=== PATIENT | male | born 1965 | race Caucasian/White ===

== ENCOUNTER 2023-12-27 13:52 | Emergency (ER) | payer BC ==
[~2023-12-27] VITALS: Ht 182.9 cm; Wt 109.1 kg
[2023-12-27 14:23] VITALS: BP 168/109; PULSE 108; RESP 18; O2SAT 98
[2023-12-27 14:37] LABS: Urine Bacteria NONE SEEN /hpf (None Seen); Urine Blood 2+ /uL (Negative); Urine Clarity Clear (Clear); Urine Protein, UAD TRACE (Negative); Urine Specific Gravity 1.008 (1.001-1.035); Urine Urobilinogen Normal (Negative); Urine WBC 1 /hpf (0 - 3)
[2023-12-27 14:38] LABS: Urine Color Yellow (Yellow)
== END 2023-12-27 16:13 | disposition left against medical advice (07) ==
LOC: ER 13:52
DX: R10.9 Unspecified abdominal pain (principal); R31.9 Hematuria, unspecified
CPT/HCPCS: 81001